=== PATIENT | male | born 1985 | race African-American/Black ===

== ENCOUNTER → 2022-11-25 14:20 | Outpatient (BNVA) | payer OTHER, SELFPAY | PROVIDERS: PCP Internal Medicine; Visit Provider Physician Assistant Surgical | DX: Z13.89 Encounter for screening for other disorder (principal) ==

== ENCOUNTER 2023-01-05 | Outpatient (REF) | payer OTHER, SELFPAY ==
[2023-01-08 15:00] LABS: H Pylori Breath Test Negative (Negative)
== END 2023-01-05 00:01 | disposition home or self-care (01) ==
LOC: HO.LNP
PROVIDERS: Visit Provider Physician Assistant
DX: Z01.818 Encounter for other preprocedural examination (principal); E66.01 Morbid (severe) obesity due to excess calories; I10 Essential (primary) hypertension
CPT/HCPCS: 83013

== ENCOUNTER → 2023-01-05 14:02 | Outpatient (BNVA) | payer OTHER, SELFPAY | PROVIDERS: PCP Internal Medicine; Visit Provider Physician Assistant ==

== ENCOUNTER → 2023-01-23 08:40 | Outpatient (BNVA) | payer OTHER, SELFPAY | PROVIDERS: PCP Internal Medicine; Referring Provider Physician Assistant; Visit Provider Counselor Mental Health | DX: F43.20 Adjustment disorder, unspecified (principal); E66.01 Morbid (severe) obesity due to excess calories; I10 Essential (primary) hypertension; Z71.3 Dietary counseling and surveillance | CPT/HCPCS: 90853 ==